=== PATIENT | male | born 1955 | race Caucasian/White ===

== ENCOUNTER 2017-08-28 16:59 | Inpatient (IN) | payer MEDICAID ==
[~2017-08-28] VITALS: Ht 193 cm; Wt 126.1 kg
[~2017-08-28 16:59] MED LIST: AMLO-511 PO; METF500T PO; SERT50TA12 PO
[2017-08-28] MEDS ORDERED: HALOPERIDOL 5 MG TABLET PO PRN (17:45)
[2017-08-28] MEDS ORDERED: ZOLPIDEM TARTRATE 10 MG TABLET PO PRN (17:45)
[2017-08-28 18:13] VITALS: BP 136/94
[2017-08-28 18:43] VITALS: BP 138/79
[2017-08-28 19:03] LABS: GLUCOSE COMMENT 1 Doctor Notified; GLUCOSE,POINT OF CARE 203 MG/DL (70-110)
[2017-08-28] MEDS ORDERED: ACETAMINOPHEN 325 MG TABLET PO PRN (20:00)
[2017-08-29] MEDS: MetFORMIN HCL 500 MG TABLET PO SCH ×2 (06:33→16:42)
[2017-08-29 06:34] VITALS: BP 138/81
[2017-08-29] MEDS: AmLODIPine BESYLATE 5 MG TABLET PO SCH (08:08)
[2017-08-29 08:10] VITALS: BP 137/75
[2017-08-29 08:59] LABS: BASOPHILS # (AUTO) 0.02 K/uL (0.00-0.20); BASOPHILS % (AUTO) 0.4 % (0.0-2.0); EOSINOPHILS # (AUTO) 0.14 K/uL (0.00-0.70); EOSINOPHILS % (AUTO) 2.63 % (1.0-6.0); HEMATOCRIT 37.6 % (41-53); HEMOGLOBIN 12.8 g/dL (13.5-17.5); LYMPHOCYTES % (AUTO) 19.9 % (22.0-44.0); MEAN CORPUSCULAR HEMOGLOBIN 30.5 pg (26.0-34.0); MEAN CORPUSCULAR HGB CONC 34.1 G/dL (31.0-37.0); MEAN CORPUSCULAR VOLUME 90 fL (80-100); MONOCYTES # (AUTO) 0.3 K/uL (0.1-1.0); MONOCYTES % (AUTO) 4.7 % (2.0-9.0); NEUTROPHILS # (AUTO) 3.8 K/uL (1.8-7.7); NEUTROPHILS % (AUTO) 72.4 % (40.0-70.0); PLATELET COUNT (AUTO) 182 K/uL (150-450); RED CELL DISTRIBUTION WIDTH 14.9 % (11.5-14.5); WHITE BLOOD COUNT (AUTO) 5.2 K/uL (4.5-11.0)
[2017-08-29 09:55] LABS: HEMOGLOBIN A1C 6.9 % (4.5-6.2)
[2017-08-29 10:23] LABS: ALANINE AMINOTRANSFERASE 22 U/L (12-78); ALBUMIN 3.4 g/dL (3.4-5.0); ANION GAP 9 mmol/L (8-16); ASPARTATE AMINOTRANSFERASE 15 U/L (15-37); BILIRUBIN,TOTAL 0.5 mg/dL (0.1-1.0); CALCIUM, TOTAL 8.5 mg/dL (8.8-10.5); CARBON DIOXIDE 25 mmol/L (22-29); CHLORIDE 105 mmol/L (98-107); CHOL/HDL RATIO 5.2 (4.2-7.3); CREATININE 0.94 mg/dL (0.60-1.30); GLOMERULAR FILTR. RATE CALC > 60 mL/min (>60); POTASSIUM 4.4 mmol/L (3.5-5.1); SODIUM SERUM 139 mmol/L (136-145); THYROID STIMULATING HORMONE 3.71 uIU/mL (0.36-3.74); TOTAL PROTEIN, SERUM 6.9 g/dL (6.4-8.2); UREA NITROGEN, BLOOD 19 mg/dL (7-18)
[2017-08-29] MEDS: ARIPiprazole 5 MG TABLET PO SCH (13:03)
[2017-08-29] MEDS: SERTRALINE HCL 50 MG TABLET PO SCH (13:03)
[2017-08-29] MEDS: IBUPROFEN 600 MG TABLET PO PRN (13:53)
[2017-08-29 16:00] VITALS: BP 140/88
[2017-08-29] MEDS ORDERED: GLUCAGON,HUMAN RECOMBINANT 1 MG VIAL IM PRN (16:00)
[2017-08-29] MEDS: LORazepam 2 MG TABLET PO PRN (16:42)
[2017-08-29] MEDS: INSULIN ASPART 100 UNITS/ML SQ PRN (16:43)
[2017-08-29 16:48] LABS: GLUCOSE,POINT OF CARE 192 MG/DL (70-110)
[2017-08-30 06:28] LABS: GLUCOSE,POINT OF CARE 134 MG/DL (70-110)
[2017-08-30 06:39] VITALS: BP 107/72
[2017-08-30] MEDS: MetFORMIN HCL 500 MG TABLET PO SCH ×2 (06:39→16:39)
[2017-08-30 08:02] VITALS: BP 144/78
[2017-08-30] MEDS: ARIPiprazole 5 MG TABLET PO SCH (09:18)
[2017-08-30] MEDS: SERTRALINE HCL 50 MG TABLET PO SCH (09:18)
[2017-08-30] MEDS: CHOLECALCIFEROL (VIT D3) 1,000 UNITS TABLET PO SCH (09:18)
[2017-08-30] MEDS: AmLODIPine BESYLATE 5 MG TABLET PO SCH (09:18)
[2017-08-30] MEDS: LORazepam 2 MG TABLET PO PRN (09:26)
[2017-08-30 16:04] VITALS: BP 134/76
[2017-08-30 17:22] LABS: GLUCOSE,POINT OF CARE 136 MG/DL (70-110)
[2017-08-31 06:23] VITALS: BP 143/88
[2017-08-31 06:28] LABS: GLUCOSE,POINT OF CARE 107 MG/DL (70-110)
[2017-08-31] MEDS: MetFORMIN HCL 500 MG TABLET PO SCH ×2 (06:34→16:32)
[2017-08-31 08:43] VITALS: BP 119/71
[2017-08-31] MEDS: AmLODIPine BESYLATE 5 MG TABLET PO SCH (08:56)
[2017-08-31] MEDS: ARIPiprazole 5 MG TABLET PO SCH (08:56)
[2017-08-31] MEDS: CHOLECALCIFEROL (VIT D3) 1,000 UNITS TABLET PO SCH (08:56)
[2017-08-31] MEDS: SERTRALINE HCL 50 MG TABLET PO SCH (08:56)
[2017-08-31 16:22] VITALS: BP 114/68
[2017-08-31] MEDS: IBUPROFEN 600 MG TABLET PO PRN (16:37)
[2017-08-31 17:03] LABS: GLUCOSE,POINT OF CARE 125 MG/DL (70-110)
[2017-09-01 01:07] VITALS: BP 140/84
[2017-09-01] MEDS: MetFORMIN HCL 500 MG TABLET PO SCH ×2 (06:26→16:38)
[2017-09-01 06:28] LABS: GLUCOSE,POINT OF CARE 117 MG/DL (70-110)
[2017-09-01 08:09] VITALS: BP 121/63
[2017-09-01] MEDS: AmLODIPine BESYLATE 5 MG TABLET PO SCH (08:38)
[2017-09-01] MEDS: ARIPiprazole 5 MG TABLET PO SCH (08:38)
[2017-09-01] MEDS: CHOLECALCIFEROL (VIT D3) 1,000 UNITS TABLET PO SCH (08:38)
[2017-09-01] MEDS: SERTRALINE HCL 50 MG TABLET PO SCH (08:38)
[2017-09-01 16:00] VITALS: BP 114/67
[2017-09-01] MEDS: LORazepam 2 MG TABLET PO PRN (16:38)
[2017-09-01] MEDS: IBUPROFEN 600 MG TABLET PO PRN (16:38)
[2017-09-01] MEDS: INSULIN ASPART 100 UNITS/ML SQ PRN (16:40)
[2017-09-01 17:17] LABS: GLUCOSE COMMENT 1 Received Meds; GLUCOSE,POINT OF CARE 161 MG/DL (70-110)
[2017-09-02 06:03] LABS: GLUCOSE,POINT OF CARE 116 MG/DL (70-110)
[2017-09-02] MEDS: MetFORMIN HCL 500 MG TABLET PO SCH (06:10)
[2017-09-02 06:30] VITALS: BP 144/86
[2017-09-02 06:41] VITALS: BP 144/86
[2017-09-02] MEDS: IBUPROFEN 600 MG TABLET PO PRN (06:43)
[2017-09-02 08:08] VITALS: BP 141/64
[2017-09-02] MEDS: ARIPiprazole 5 MG TABLET PO SCH (09:02)
[2017-09-02] MEDS: AmLODIPine BESYLATE 5 MG TABLET PO SCH (09:02)
[2017-09-02] MEDS: SERTRALINE HCL 50 MG TABLET PO SCH (09:02)
[2017-09-02] MEDS: CHOLECALCIFEROL (VIT D3) 1,000 UNITS TABLET PO SCH (09:02)
[2017-09-02] MEDS ORDERED: ARIP5TAB8 PO (09:35)
== END 2017-09-02 13:30 | disposition home or self-care (01) | DRG 751 ==
LOC: B3A 17:45
PROVIDERS: ADMIT Psychiatry & Neurology Psychiatry; ATTEND Psychiatry & Neurology Psychiatry
DX: F33.2 Major depressive disorder, recurrent severe without psychotic features (principal); E11.22 Type 2 diabetes mellitus with diabetic chronic kidney disease; R45.851 Suicidal ideations; I48.91 Unspecified atrial fibrillation; M19.90 Unspecified osteoarthritis, unspecified site; N18.9 Chronic kidney disease, unspecified; Z59.0 Homelessness; Z91.010 Allergy to peanuts; D63.1 Anemia in chronic kidney disease; I12.9 Hypertensive chronic kidney disease with stage 1 through stage 4 chronic kidney disease, or unspecified chronic kidney disease; I25.10 Atherosclerotic heart disease of native coronary artery without angina pectoris; F60.3 Borderline personality disorder; F15.20 Other stimulant dependence, uncomplicated; Z88.8 Allergy status to other drugs, medicaments and biological substances
CPT/HCPCS: 82306; 82962; 83036; 84439; 84443